=== PATIENT | female | born 1990 | race Caucasian/White ===

== ENCOUNTER 2016-12-18 21:03 | Outpatient (CLI) | payer OTHER ==
[~2016-12-18] VITALS: Ht 167.6 cm; Wt 64.4 kg
[2017-02-05] MEDS ORDERED: COLACE 100MG C100 MG PO (10:44)
[2017-02-05] MEDS ORDERED: IBUPROFEN600 MG PO (10:44)
== END 2016-12-19 08:04 | disposition home or self-care (01) ==
LOC: GENOP 21:03
DX: O36.8130 Decreased fetal movements, third trimester, not applicable or unspecified (principal); O21.0 Mild hyperemesis gravidarum; O99.89 Other specified diseases and conditions complicating pregnancy, childbirth and the puerperium; R10.9 Unspecified abdominal pain; Z3A.32 32 weeks gestation of pregnancy
CPT/HCPCS: 59025; 81001; 82731; 96360; 96361; J2550; J7120